=== PATIENT | male | born 1955 | race Caucasian/White ===

== ENCOUNTER 2016-12-03 15:59 | Emergency (ER) | payer MEDICAID ==
[~2016-12-03] VITALS: Ht 185.4 cm; Wt 78.9 kg
[2016-12-03 16:16] VITALS: BP 144/78
[2016-12-03 16:48] LABS: Basophils # (auto) 0 uL; Basophils % (auto) 0.6 % (0.0-2.0); Eosinophils # (auto) 0 uL; Eosinophils % (auto) 0.7 % (0.0-7.0); Hematocrit 45.1 % (41.0-53.0); Hemoglobin 15.3 g/dL (13.5-17.5); Lymphocytes # (auto) 1.8 uL; Lymphocytes % (auto) 28.3 % (10.0-50.0); Mean Corpuscular Volume 91.2 fL (80.0-100.0); Mean Platelet Volume 8.1 fL (7.4-10.4); Monocytes # (auto) 0.5 uL; Monocytes % (auto) 8.7 % (0.0-12.0); Neutrophils # (auto) 3.9 uL; Neutrophils % (auto) 61.7 % (37.0-80.0); Platelet Count (auto) 170 10^3/uL (140-450); Red Cell Distribution Width 12.5 % (11.6-16.0); White Blood Cell 6.3 10^3/uL (4.4-10.8)
[2016-12-03 17:03] LABS: Anion Gap 10 (5-15); Aspartate Aminotransferase 18 U/L (15-37); BUN/Creatinine Ratio 13.2; Blood Urea Nitrogen 15 mg/dL (7-18); Calcium 8.7 mg/dL (8.5-10.1); Carbon Dioxide 29 mmol/L (21-32); Chloride 102 mmol/L (98-107); GFR African American 84 mL/min; GFR Non-African American 70 mL/min; Glucose 142 mg/dL (74-106); Potassium 3.7 mmol/L (3.5-5.1); Sodium 141 mmol/L (136-145)
[2016-12-03 17:08] LABS: Alkaline Phosphatase 116 U/L (45-117); Bilirubin, Total 0.4 mg/dL (0.2-1.0); Total Protein 7.5 g/dL (6.4-8.2)
== END 2016-12-04 00:45 | disposition left against medical advice (07) ==
LOC: ER 16:03
DX: R53.1 Weakness (principal); Z53.21 Procedure and treatment not carried out due to patient leaving prior to being seen by health care provider
CPT/HCPCS: 36415; 71020; 80053; 84484; 85025; 93005

== ENCOUNTER 2018-11-28 13:37 | Emergency (ER) | payer MEDICAID ==
[~2018-11-28] VITALS: Ht 185.4 cm; Wt 79.4 kg
[2018-11-28 14:12] LABS: Basophils # (auto) 0.1 uL; Basophils % (auto) 1.4 % (0.0-2.0); Eosinophils # (auto) 0 uL; Eosinophils % (auto) 0.7 % (0.0-7.0); Hematocrit 43.6 % (41.0-53.0); Hemoglobin 14.8 g/dL (13.5-17.5); Lymphocytes # (auto) 1.4 uL; Lymphocytes % (auto) 28.1 % (10.0-50.0); Mean Corpuscular Hemoglobin 30.8 pg (28.0-32.0); Mean Corpuscular Volume 90.5 fL (80.0-100.0); Monocytes # (auto) 0.4 uL; Monocytes % (auto) 8.2 % (0.0-12.0); Neutrophils % (auto) 61.6 % (37.0-80.0); Nucleated Red Blood Cells % 0.1 %; Platelet Count (auto) 138 10^3/uL (140-450); Red Blood Cells 4.82 10^6/uL (4.5-5.90); Red Cell Distribution Width 13.2 % (11.8-14.3); White Blood Cell 4.8 10^3/uL (4.4-10.8)
[2018-11-28 15:59] LABS: Anion Gap 10 (5-15); Blood Urea Nitrogen 18 mg/dL (7-18); Calcium 8.9 mg/dL (8.5-10.1); Carbon Dioxide 21 mmol/L (21-32); Chloride 110 mmol/L (98-107); Glucose 159 mg/dL (74-106); Magnesium 2.4 mg/dL (1.6-2.6); Potassium 3.8 mmol/L (3.5-5.1); Sodium 141 mmol/L (136-145)
[2018-11-28 16:07] LABS: Alanine Aminotransferase 36 U/L (16-61); Alkaline Phosphatase 151 U/L (45-117); Aspartate Aminotransferase 22 U/L (15-37); BUN/Creatinine Ratio 12.9; Bilirubin, Total 0.3 mg/dL (0.2-1.0); GFR African American 66 mL/min; GFR Non-African American 55 mL/min; Total Protein 7.3 g/dL (6.4-8.2)
[2018-11-28 17:52] VITALS: BP 152/79
== END 2018-11-28 18:18 | disposition home or self-care (01) ==
LOC: ER 13:37 → EDBD 13:37 → ER 18:17
DX: H81.10 Benign paroxysmal vertigo, unspecified ear (principal); I10 Essential (primary) hypertension
CPT/HCPCS: 36415; 70450; 80053; 83735; 84484; 85025; 93005

== ENCOUNTER → 2019-07-10 | Emergency (ER) | payer MEDICAID ==
[~2019-07-10] VITALS: Ht 185.4 cm; Wt 81.6 kg
[~2019-07-10] MED LIST: IOHEXOL 350 MG/ML 100ML IJ ONE; SODIUM CHLORIDE 0.9% 1,000 ML IV ONE
[2019-07-10 16:35] LABS: Basophils # (auto) 0 uL; Basophils % (auto) 0.9 % (0.0-2.0); Eosinophils # (auto) 0 uL; Eosinophils % (auto) 0.7 % (0.0-7.0); Hematocrit 43.2 % (41.0-53.0); Hemoglobin 14.9 g/dL (13.5-17.5); Lymphocytes % (auto) 18.5 % (10.0-50.0); Mean Corpuscular Hemoglobin 31.2 pg (28.0-32.0); Mean Corpuscular Hgb Conc. 34.6 g/dL (32.0-36.0); Mean Corpuscular Volume 90.1 fL (80.0-100.0); Monocytes # (auto) 0.4 uL; Monocytes % (auto) 7.4 % (0.0-12.0); Neutrophils % (auto) 72.5 % (37.0-80.0); Platelet Count (auto) 145 10^3/uL (140-450); Red Blood Cells 4.79 10^6/uL (4.5-5.90); Red Cell Distribution Width 13.6 % (11.8-14.3); White Blood Cell 5.6 10^3/uL (4.4-10.8)
[2019-07-10 16:45] LABS: Albumin 3.8 g/dL (3.4-5.0); Anion Gap 6 (5-15); Blood Urea Nitrogen 15 mg/dL (7-18); Calcium 8.5 mg/dL (8.5-10.1); Carbon Dioxide 26 mmol/L (21-32); Chloride 109 mmol/L (98-107); Glucose 109 mg/dL (74-106); Potassium 3.9 mmol/L (3.5-5.1); Sodium 141 mmol/L (136-145)
[2019-07-10 16:52] LABS: Alanine Aminotransferase 31 U/L (16-61); Alkaline Phosphatase 130 U/L (45-117); Aspartate Aminotransferase 15 U/L (15-37); BUN/Creatinine Ratio 15.6; Bilirubin, Total 0.4 mg/dL (0.2-1.0); GFR African American 102 mL/min; GFR Non-African American 84 mL/min; Total Protein 7.2 g/dL (6.4-8.2)
[2019-07-10 20:07] VITALS: BP 151/76
== END | disposition home or self-care (01) ==
LOC: EDUNIT# 15:20 → EDBD 15:35 → ER 15:50
DX: R53.1 Weakness (principal); R51 Headache; I10 Essential (primary) hypertension; E11.9 Type 2 diabetes mellitus without complications
CPT/HCPCS: 36415; 70450; 71046; 72100; 80053; 84484; 85025; 93005; 99284; J7030; Q9967